=== PATIENT | female | born 1965 | race Caucasian/White ===

== ENCOUNTER 2016-08-23 11:02 | Emergency (ER) | payer OTHER, MEDICARE ==
[~2016-08-23] VITALS: Ht 182.9 cm; Wt 95.5 kg
[2016-08-23 11:06] VITALS: BP 145/72; PULSE 103; TEMP 98.6
[2016-08-23] MEDS ORDERED: KLONOPIN 0.5MG0.5 MG PO (11:16)
[2016-08-23] MEDS ORDERED: MOBIC15 MG PO (11:16)
[2016-08-23] MEDS ORDERED: AMBIEN 10MG10 MG PO (11:17)
[2016-08-23] MEDS ORDERED: ZANAFLEX 4MG TAB4 MG PO (11:17)
[2016-08-23] MEDS ORDERED: REXULTI3 MG PO (11:17)
[2016-08-23] MEDS ORDERED: DESYREL DIVIDO150 M1 PO (11:18)
[2016-08-23] MEDS ORDERED: SYNTHROID 0.10.15 MG PO (11:18)
[2016-08-23] MEDS ORDERED: KADIAN60 MG PO (11:19)
[2016-08-23] MEDS ORDERED: VIIBRYD40 MG PO (11:19)
== END 2016-08-23 13:19 | disposition home or self-care (01) ==
LOC: COL.ER 11:02
DX: S30.0XXA Contusion of lower back and pelvis, initial encounter (principal); S60.222A Contusion of left hand, initial encounter; M81.0 Age-related osteoporosis without current pathological fracture; D46.9 Myelodysplastic syndrome, unspecified; Z87.81 Personal history of (healed) traumatic fracture; Z90.710 Acquired absence of both cervix and uterus; W18.30XA Fall on same level, unspecified, initial encounter

== ENCOUNTER → 2018-11-06 | Outpatient (CLI) | payer MEDICARE, MEDICAID ==
[~2018-11-06] MED LIST: AMBIEN 10MG10 MG PO; DESYREL DIVIDO150 M1 PO; KADIAN60 MG PO; KLONOPIN 0.5MG0.5 MG PO; MOBIC15 MG PO; REXULTI3 MG PO; SYNTHROID 0.10.15 MG PO; VIIBRYD40 MG PO; ZANAFLEX 4MG TAB4 MG PO
[2018-11-06 17:06] LABS: BASO % 0.2 % (0.0-2.0); GRAN # 4.2 (1.4-6.5); GRAN % 69.3 % (42.2-75.2); HEMATOCRIT 42.6 % (37.0-47.0); HEMOGLOBIN 14.4 g/dl (12.5-16.0); LYMPH # 1.4 (1.2-3.4); MEAN CELL VOLUME 84 fl (80.0-100.0); MEAN CORPUSCULAR HEMOGLOBIN 28 pg (27.0-31.0); MEAN CORPUSCULAR HGB CONC 34 g/dl (33.0-37.0); MEAN PLATELET VOLUME 8.5 fl (7.4-10.4); MONO # 0.4 (0.1-0.6); PLATELET COUNT 194 K/mm3 (130-400); RED BLOOD COUNT 5.09 M/mm3 (4.10-5.30); REDCELL DISTRIBUTION WIDTH-CV 12.1 % (11.5-14.5)
[2018-11-06 17:16] LABS: ALBUMIN 4.4 gm/dL (3.5-5.0); BILIRUBIN,TOTAL 0.5 mg/dL (0.0-1.0); CALCIUM 9.5 mg/dL (8.4-10.2); CREATININE, serum 1.02 (0.52-1.25); POTASSIUM 4.1 mmol/L (3.4-5.0); TOTAL PROTEIN 7.2 gm/dL (6.4-8.2)
[2018-11-06 17:47] LABS: TSH w REFLEX 0.342 uIU/mL (0.465-4.680)
== END ==
LOC: ZCOL.LAB 16:43
PROVIDERS: Family Medicine
DX: E03.9 Hypothyroidism, unspecified (principal); R10.9 Unspecified abdominal pain

== ENCOUNTER → 2019-03-01 | Outpatient (CLI) | payer MEDICARE, MEDICAID | LOC: MC.RAD 01-04 10:00 | DX: Z12.31 Encounter for screening mammogram for malignant neoplasm of breast (principal); Z98.82 Breast implant status ==